=== PATIENT | female | born 1980 | race African-American/Black ===

== ENCOUNTER 2021-12-08 11:38 | Inpatient (IN) ==
[2021-12-08 13:13] LABS: Basophils % 0.2 % (0.0-0.8); Eosinophils % 0.1 % (0.00-10.9); Hematocrit 41.9 VOL% (35.7-47.0); Hemoglobin 14.2 GM/DL (12.0-16.0); Immature Granulocytes % 0.5 %; Immature Granulocytes Absolute 0.07 #; Lymphocytes # 0.9 10*3/uL (1.4-4.0); Lymphocytes % 7.1 % (21.3-54.2); Mean Corpuscular HGB Conc 33.9 GM/DL (32-36); Mean Corpuscular Volume 94.8 FL (87-102); Mean Platelet Volume 9.7 FL (9.6-12.0); Monocytes # 0.5 10*3/uL (0.11-0.8); Monocytes % 3.8 % (1.7-12.7); Neutrophils % 88.3 % (38.7-73.9); Platelet Count 285 T/CUMM (130-400); Red Blood Count 4.42 MC/CUMM (3.8-5.5); Red Cell Distribution Width 12.5 % (9.3-17.3); White Blood Count 13.3 T/CUMM (4-12)
[2021-12-08] MEDS ORDERED: HYDROmorphone 1 MG/1 ML SYRINGE IV STA (13:14)
[2021-12-08] MEDS ORDERED: ONDANSETRON 4 MG/2 ML VIAL IV STA (13:14)
[2021-12-08 13:30] LABS: Bilirubin,Total 0.4 MG/DL (0.20-1.00); Osmolality,Calculated 279.3 MOS/KG (273-304); Potassium 3.6 MMOL/L (3.5-5.1); Total Protein 8.1 G/DL (6.4-8.2)
[2021-12-08] MEDS ORDERED: PIPERACILLIN/TAZOBACTAM 3,375 MG in SODIUM CHLORIDE 0.9% 100 ML IV STA (14:20)
[2021-12-08] MEDS ORDERED: SODIUM CHLORIDE 0.9% 1,000 ML IV STA (14:28)
[2021-12-08] MEDS ORDERED: MIDAZOLAM 2 MG/2 ML VIAL ONE (15:17)
[2021-12-08] MEDS ORDERED: LIDOCAINE 2% 5 ML VIAL ONE (15:17)
[2021-12-08] MEDS ORDERED: ONDANSETRON 4 MG/2 ML VIAL ONE (15:17)
[2021-12-08] MEDS ORDERED: propofoL 200 MG/20 ML VIAL IV ONE (15:17)
[2021-12-08] MEDS ORDERED: fentaNYL 100 MCG/2 ML VIAL ONE (15:17)
[2021-12-08] MEDS ORDERED: SUCCINYLCHOLINE 200 MG/10 ML VIAL ONE (15:36)
[2021-12-08] MEDS ORDERED: ACETAMINOPHEN INJ 1,000 MG/100 ML VIAL IV ONE (16:07)
[2021-12-08] MEDS ORDERED: DEXAMETHASONE 4 MG/1 ML VIAL ONE (16:13)
[2021-12-08] MEDS ORDERED: ESTRADIOL 0.01% VAG CREAM 42.5 GM TUBE VAG ONE (16:29)
[2021-12-08] MEDS ORDERED: SEVOFLURANE 1 UNIT/15 MINUTE INH ONE (16:30)
[2021-12-08] MEDS ORDERED: LACTATED RINGERS 1,000 ML IV ONE (16:32)
[2021-12-08] MEDS ORDERED: KETOROLAC 30 MG/1 ML VIAL ONE (16:33)
[2021-12-08] MEDS ORDERED: MEPERIDINE 25 MG/1 ML VIAL ONE (17:09)
[2021-12-08] MEDS ORDERED: MEPERIDINE 25 MG/1 ML VIAL IV PRN (17:13)
[2021-12-08] MEDS ORDERED: ACETAMINOPHEN 325 MG TABLET PO PRN (18:03)
[2021-12-08] MEDS ORDERED: BISACODYL 10 MG SUPP RECTAL PRN (18:03)
[2021-12-08] MEDS ORDERED: BENZOCAINE/MENTHOL LOZENGE 18/BOX PO PRN (18:03)
[2021-12-08] MEDS ORDERED: ONDANSETRON 4 MG/2 ML VIAL IV PRN (18:03)
[2021-12-08] MEDS ORDERED: HYDROmorphone 1 MG/1 ML SYRINGE IV PRN (18:30)
[2021-12-08] MEDS ORDERED: KETOROLAC 30 MG/1 ML VIAL IV PRN (19:58)
[2021-12-08] MEDS: SIMETHICONE CHEW 80 MG TABLET PO PRN (23:36)
[2021-12-08] MEDS: oxyCODONE/ACETAMINOPHEN 5-325 MG TABLET PO PRN (23:36)
[2021-12-09] MEDS ORDERED: diphenhydrAMINE CAP 25 MG CAPSULE PO PRN (00:27)
[2021-12-09] MEDS: LACTATED RINGERS 1,000 ML IV SCH ×3 (05:13→14:58)
[2021-12-09 05:44] LABS: Basophils % 0.1 % (0.0-0.8); Hematocrit 35.8 VOL% (35.7-47.0); Immature Granulocytes % 0.6 %; Immature Granulocytes Absolute 0.09 #; Lymphocytes # 0.9 10*3/uL (1.4-4.0); Lymphocytes % 6.4 % (21.3-54.2); Mean Corpuscular HGB Conc 33.5 GM/DL (32-36); Mean Corpuscular Volume 95.5 FL (87-102); Mean Platelet Volume 10.4 FL (9.6-12.0); Monocytes # 0.4 10*3/uL (0.11-0.8); Monocytes % 2.8 % (1.7-12.7); Neutrophils % 90.1 % (38.7-73.9); Platelet Count 227 T/CUMM (130-400); Red Blood Count 3.75 MC/CUMM (3.8-5.5); Red Cell Distribution Width 12.3 % (9.3-17.3)
[2021-12-09] MEDS: oxyCODONE/ACETAMINOPHEN 5-325 MG TABLET PO PRN ×4 (06:38→20:59)
[2021-12-09] MEDS: MAGNESIUM HYDROXIDE SUSP 30 ML UDCUP PO PRN (08:15)
[2021-12-09] MEDS: DOCUSATE SODIUM 100 MG CAPSULE PO PRN (08:15)
[2021-12-09] MEDS: IBUPROFEN 800 MG TABLET PO PRN (08:17)
[2021-12-09] MEDS ORDERED: METOCLOPRAMIDE 10 MG/2 ML VIAL IV PRN (11:00)
[2021-12-09] MEDS: METOCLOPRAMIDE 10 MG/2 ML VIAL IV SCH (15:49)
[2021-12-09] MEDS: CLINDAMYCIN INJ 600 MG/50 ML PREMIX IV SCH (16:10)
[2021-12-09] MEDS ORDERED: ACETAMINOPHEN 500 MG TABLET PO PRN (18:26)
[2021-12-09] MEDS: ACETAMINOPHEN 500 MG TABLET PO SCH (18:30)
[2021-12-10] MEDS: CLINDAMYCIN INJ 600 MG/50 ML PREMIX IV SCH ×2 (00:06→08:37)
[2021-12-10] MEDS: METOCLOPRAMIDE 10 MG/2 ML VIAL IV SCH ×2 (00:06→08:37)
[2021-12-10] MEDS: IBUPROFEN 800 MG TABLET PO PRN (00:06)
[2021-12-10] MEDS: ACETAMINOPHEN 500 MG TABLET PO SCH ×3 (01:20→13:25)
[2021-12-10] MEDS: LACTATED RINGERS 1,000 ML IV SCH (02:41)
[2021-12-10] MEDS: oxyCODONE/ACETAMINOPHEN 5-325 MG TABLET PO PRN ×2 (04:23→13:05)
[2021-12-10 06:54] LABS: Basophils % 0.1 % (0.0-0.8); Eosinophils # 0.1 10*3/uL (0.0-0.87); Eosinophils % 0.7 % (0.00-10.9); Hemoglobin 10.6 GM/DL (12.0-16.0); Immature Granulocytes % 0.1 %; Immature Granulocytes Absolute 0.01 #; Lymphocytes # 1.7 10*3/uL (1.4-4.0); Lymphocytes % 25.4 % (21.3-54.2); Mean Corpuscular HGB Conc 33.1 GM/DL (32-36); Mean Corpuscular Volume 95.8 FL (87-102); Monocytes # 0.4 10*3/uL (0.11-0.8); Monocytes % 5.5 % (1.7-12.7); Neutrophils % 68.2 % (38.7-73.9); Platelet Count 191 T/CUMM (130-400); Red Blood Count 3.34 MC/CUMM (3.8-5.5); Red Cell Distribution Width 12.5 % (9.3-17.3); White Blood Count 6.8 T/CUMM (4-12)
[2021-12-10] MEDS: SIMETHICONE CHEW 80 MG TABLET PO PRN (08:33)
[2021-12-10] MEDS: DOCUSATE SODIUM 100 MG CAPSULE PO PRN (08:33)
[2021-12-10] MEDS: MAGNESIUM HYDROXIDE SUSP 30 ML UDCUP PO PRN (08:33)
[2021-12-10 11:19] VITALS: BP 121/77
== END 2021-12-10 15:55 | disposition home or self-care (01) | DRG 760 ==
LOC: N.ED 11:38 → N.EDINP 15:56 → N.OB 17:35
PROVIDERS: ADMIT Obstetrics & Gynecology; ATTEND Obstetrics & Gynecology